=== PATIENT | female | born 1965 | race Caucasian/White ===

== ENCOUNTER 2020-01-04 23:56 | Inpatient (IN) | payer SELFPAY ==
[~2020-01-04] VITALS: Ht 170.2 cm; Wt 67.9 kg
[2020-01-05] VITALS (7 sets, daily range): BP systolic 126–167; BP diastolic 65–124
[2020-01-05] MEDS ORDERED: NITROGLYCERIN 1GM/1 INCH PACKET TD ONE (00:25)
[2020-01-05] MEDS ORDERED: ASPIRIN 325 MG TABLET ONE (00:25)
[2020-01-05 00:33] LABS: BASOPHILS % (AUTO) 1.2 % (0.0-5.0); EOSINOPHILS % (AUTO) 1.9 % (0.0-8.0); HEMATOCRIT 37.7 % (36-48); LYMPHOCYTES % (AUTO) 49.2 % (21.0-51.0); MEAN CORPUSCULAR HEMOGLOBIN 34.3 pg (27.0-33.0); MEAN CORPUSCULAR HGB CONC 36.3 g/dL (32.0-36.0); MEAN CORPUSCULAR VOLUME 94.3 fL (79-99); MONOCYTES % (AUTO) 6.8 % (3.0-13.0); NEUTROPHILS % (AUTO) 40.7 % (40.0-77.0); PLATELET COUNT (AUTO) 162 K/uL (130-400); RED CELL DISTRIBUTION WIDTH 14.6 % (11.0-15.5); WHITE BLOOD COUNT (AUTO) 4.8 K/uL (4.8-10.8)
[2020-01-05 00:35] LABS: CREATININE 0.7 mg/dL (0.5-1.5); POTASSIUM 3.6 mmol/L (3.5-5.1)
[2020-01-05] MEDS ORDERED: ACETAMINOPHEN 325 MG TAB PO PRN (02:30)
[2020-01-05] MEDS ORDERED: ONDANSETRON HCL 4 MG/2 ML VIAL IV PRN (02:30)
[2020-01-05] MEDS ORDERED: MORPHINE SULFATE 2 MG/ML 1ML SYG IVP PRN (02:45)
[2020-01-05] MEDS ORDERED: CHLORDIAZEPOXIDE HCL 25 MG CAP PO PRN ×2 (02:45→17:30)
[2020-01-05] MEDS ORDERED: LORAZEPAM 2 MG/ML 1 ML VIAL IVP PRN (02:45)
[2020-01-05] MEDS: NITROGLYCERIN 1GM/1 INCH PACKET TD SCH ×3 (02:45→18:45)
[2020-01-05] MEDS: LACTATED RINGERS 1000ML 1,000 ML IV SCH ×2 (02:45→11:25)
[2020-01-05] MEDS ORDERED: HYDRALAZINE HCL 20 MG/ML VIAL IV PRN (03:00)
[2020-01-05] MEDS ORDERED: ACETAMINOPHEN 325 MG TAB ONE (03:15)
[2020-01-05] MEDS ORDERED: LACTATED RINGERS 1000ML 1,000 ML IV ONE (03:59)
[2020-01-05 05:46] LABS: BASOPHILS % (AUTO) 1.2 % (0.0-5.0); EOSINOPHILS % (AUTO) 1.4 % (0.0-8.0); HEMATOCRIT 35.8 % (36-48); LYMPHOCYTES % (AUTO) 42.5 % (21.0-51.0); MEAN CORPUSCULAR HEMOGLOBIN 33.4 pg (27.0-33.0); MEAN CORPUSCULAR HGB CONC 35.5 g/dL (32.0-36.0); MEAN CORPUSCULAR VOLUME 94.2 fL (79-99); MONOCYTES % (AUTO) 5.1 % (3.0-13.0); NEUTROPHILS % (AUTO) 49.4 % (40.0-77.0); PLATELET COUNT (AUTO) 144 K/uL (130-400); RED CELL DISTRIBUTION WIDTH 14.6 % (11.0-15.5); WHITE BLOOD COUNT (AUTO) 4.9 K/uL (4.8-10.8)
[2020-01-05 05:56] LABS: HEMOGLOBIN A1C 5.5 % (4.0-6.0)
[2020-01-05 06:08] LABS: ALANINE AMINOTRANSFERASE 56 U/L (12-78); ASPARTATE AMINOTRANSFERASE 148 U/L (10-37); BILIRUBIN,DIRECT 0.2 mg/dL (0.0-0.3); BILIRUBIN,TOTAL 0.6 mg/dL (0.2-1.0); CARBON DIOXIDE 26 mmol/L (21-32); CHLORIDE 96 mmol/L (101-111); CHOLESTEROL 194 mg/dL (<200); CREATINE KINASE, TOTAL 63 U/L (21-232); CREATININE 0.7 mg/dL (0.5-1.5); GLOMERULAR FILTR. RATE CALC 93 mL/min (>60); GLUCOSE,RANDOM 94 mg/dL (70-105); HDL CHOLESTEROL 128 mg/dL (35-85); LDL DIRECT 39 mg/dL (0-99); MYOGLOBIN 18 ng/mL (10-92); POTASSIUM 3.6 mmol/L (3.5-5.1); SODIUM SERUM 135 mmol/L (136-145); THYROID STIMULATING HORMONE 1.53 uIU/mL (0.36-3.74); TOTAL PROTEIN, SERUM 6.8 g/dL (6.0-8.3); TRIGLYCERIDES 226 mg/dL (30-200); TROPONIN I < 0.04 ng/mL (0.00-0.06); UREA NITROGEN, BLOOD 6 mg/dL (7-18)
[2020-01-05] MEDS: ACETAMINOPHEN 325 MG TAB PO PRN ×2 (07:31→20:26)
[2020-01-05] MEDS ORDERED: HYDR12.54 PO (08:15)
[2020-01-05] MEDS ORDERED: AMLO10TA7 PO (08:15)
[2020-01-05] MEDS ORDERED: LOSA100T58 PO (08:15)
[2020-01-05] MEDS ORDERED: LABETALOL HCL 5 MG/ML 20ML VIAL IV SCH (09:00)
[2020-01-05] MEDS: M.V.I. IV [ADULT] 10 ML, FOLIC ACID 1 MG, THIAMINE HCL 100 MG in SODIUM CHLORIDE 0.9% 1... IV SCH (09:00)
[2020-01-05] MEDS ORDERED: LORAZEPAM 2 MG/ML 1 ML VIAL IVP SCH (09:00)
[2020-01-05] MEDS ORDERED: CHLORDIAZEPOXIDE HCL 25 MG CAP PO SCH (09:00)
[2020-01-05] MEDS ORDERED: LABETALOL HCL 5 MG/ML 20ML VIAL IV ONE (09:07)
[2020-01-05] MEDS ORDERED: SODIUM CHLORIDE 0.9% 500ML 500 ML IV ONE (09:08)
[2020-01-05] MEDS: ASPIRIN 81 MG EC TAB PO SCH (09:20)
[2020-01-05] MEDS: FAMOTIDINE/PF 20 MG/2 ML VIAL IV SCH ×2 (09:20→19:48)
[2020-01-05] MEDS ORDERED: LABETALOL 20 MG/4 ML DISP.SYRIN IV PRN ×3 (09:30→21:00)
[2020-01-05] MEDS: MAGNESIUM 2GM PREMIX 50ML 50 ML IV SCH ×2 (09:32→14:53)
--- NOTE | 2020-01-05 11:25 | NUR ---
DCP: HOME Sw spoke to pt via phone. Pt lives in [facility] and works with a traveling [employer]. Pt staying here in motor home after [employer] was shut down due to Conoravirus. Pt states she and NEAL Dsouza [phone] split up and they are currently not together. Pt is independent, no DME or HH. Pt has PCP is [facility] and gets her BP meds at [facility]. Pt has good support system with co workers. Pt denies problem with alcohol. States she been under a lot of stress related to not working, multiple family deaths in recent months and break up. "I just did not handle it well". Pt denies need for referral or intervention and refused resources offered. Addendum: 01/05/20 at 1130 by SINA NGUYEN Amended: Links added.
[2020-01-05] MEDS ORDERED: PHARMACY COMMUNICATION MISC SCH (12:45)
[2020-01-05] MEDS ORDERED: COMPOUND PO MISCELLANEOUS 1 EACH MISC MISC PRN (13:00)
[2020-01-05] MEDS ORDERED: LOSARTAN 50 MG TABLET PO SCH (13:55)
[2020-01-05] MEDS: VANCOMYCIN 250MG/5ML ORAL SOLUTION 40ML PO SCH ×4 (14:49→19:48)
[2020-01-05 15:21] LABS: AMPHET/METH SCREEN,URINE NEGATIVE (NEGATIVE); BARBITURATE SCREEN, URINE NEGATIVE (NEGATIVE); BENZODIAZEPINES SCREEN,URINE NEGATIVE (NEGATIVE); CANNABINOID SCREEN,URINE NEGATIVE (NEGATIVE); COCAINE SCREEN,URINE NEGATIVE (NEGATIVE); OPIATE SCREEN,URINE NEGATIVE (NEGATIVE); PHENCYCLIDINE SCREEN,URINE NEGATIVE (NEGATIVE)
[2020-01-05] MEDS: METOPROLOL TARTRATE 25 MG TAB PO SCH (20:27)
[2020-01-05] MEDS: TRAZODONE HCL 50 MG TAB PO SCH (20:27)
[2020-01-06] MEDS: VANCOMYCIN 250MG/5ML ORAL SOLUTION 40ML PO SCH ×4 (00:19→05:51)
[2020-01-06] MEDS: NITROGLYCERIN 1GM/1 INCH PACKET TD SCH (00:20)
[2020-01-06 03:39] VITALS: BP 164/95
[2020-01-06] MEDS: METOPROLOL TARTRATE 25 MG TAB PO SCH (03:46)
[2020-01-06 03:55] LABS: HEMATOCRIT 35.9 % (36-48); MEAN CORPUSCULAR HEMOGLOBIN 34.4 pg (27.0-33.0); MEAN CORPUSCULAR HGB CONC 35.7 g/dL (32.0-36.0); MEAN CORPUSCULAR VOLUME 96.5 fL (79-99); PLATELET COUNT (AUTO) 143 K/uL (130-400); RED BLOOD CELL COUNT(AUTO) 3.72 MIL/uL (4.00-5.50); RED CELL DISTRIBUTION WIDTH 14.9 % (11.0-15.5); WHITE BLOOD COUNT (AUTO) 6.3 K/uL (4.8-10.8)
[2020-01-06 04:22] LABS: ALBUMIN 3.9 g/dL (3.5-5.0); BILIRUBIN,TOTAL 1.1 mg/dL (0.2-1.0); CREATININE 0.7 mg/dL (0.5-1.5); MAGNESIUM 2.1 mg/dL (1.80-2.40); POTASSIUM 3.6 mmol/L (3.5-5.1); TOTAL PROTEIN, SERUM 6.9 g/dL (6.0-8.3)
[2020-01-06 04:51] LABS: BAND NEUTROPHILS % (MANUAL) 3 % (0-2); BASOPHILS % (MANUAL) 2 % (0-2); EOSINOPHILS % (MANUAL) 1 % (1-6); LYMPHOCYTES % (MANUAL) 16 % (22-44); MAN.DIFF COMMENT-IMPRESSION MANUAL DIFFERENTIAL; MONOCYTES % (MANUAL) 6 % (2-9); SEGMENTED NEUTROPHILS % 72 % (40-70)
[2020-01-06 04:52] LABS: PLATELET MORPHOLOGY COMMENT ADEQUATE
[2020-01-06 07:29] VITALS: BP 167/116
--- NOTE | 2020-01-06 08:00 | NUR ---
NOTE AAOX3. DNEIES PAIN OR DISCOMFORT AT THIS TIME. BBS CLEAR NO COUGH OR PHLEGM. SHE REMAINS IN ISOLATION FOR C-DIFF. SHE IS ON VANCO PO. CONTINUES WITH LOOSE STOOLS BUT LESS FREQUENT. SHE IS ON CIWA PROTOCOL FOR SHE CAME IN WITH ALCOHOL LEVEL >200 AND ADMITS TO DRINK ALCOHOL FREQUENTLY. CIWA SCORE 0.
[2020-01-06] MEDS: ASPIRIN 81 MG EC TAB PO SCH (08:59)
[2020-01-06] MEDS ORDERED: LOSARTAN 50 MG TABLET PO SCH ×2 (09:00→12:15)
[2020-01-06] MEDS: PAROXETINE HCL 20 MG TABLET PO SCH (09:00)
[2020-01-06] MEDS: FAMOTIDINE/PF 20 MG/2 ML VIAL IV SCH ×2 (09:00→20:03)
[2020-01-06] MEDS ORDERED: AMLODIPINE BESYLATE 5 MG TAB ONE (09:06)
[2020-01-06] MEDS: AMLODIPINE BESYLATE 5 MG TAB PO SCH (09:45)
[2020-01-06] MEDS: M.V.I. IV [ADULT] 10 ML, FOLIC ACID 1 MG, THIAMINE HCL 100 MG in SODIUM CHLORIDE 0.9% 1... IV SCH (10:42)
[2020-01-06 11:12] VITALS: BP 171/100
[2020-01-06] MEDS: SODIUM CHLORIDE 0.9% PO SCH ×4 (13:44→18:34)
[2020-01-06] MEDS: VANCOMYCIN 2 GM PO SCH ×4 (13:44→18:34)
[2020-01-06] MEDS ORDERED: METOPROLOL TARTRATE 25 MG TAB PO SCH (14:00)
[2020-01-06 16:20] VITALS: BP 162/107
--- NOTE | 2020-01-06 18:00 | NUR ---
note PATIENT REMAINED STABLE. NO DISTRESS OR WITHDRAWALS. SHE IS STILL ISOLATION CONTACT PLUS FOR C-DIFF. TELEMETRY HAS BEEN CALLING SHE HAS BEEN DROPPING HEART RATE IN THE 40'S WITH JUNCTIONAL RHYTHM. SPOKE TO DR CUELLAR WHEN HE ROUNDED AND HE GAVE ORDERS TO LOWER METOPROLOL DOSAGE. CHANGES HAVE BEEN MADE.
[2020-01-06] MEDS: TRAZODONE HCL 50 MG TAB PO SCH (20:03)
[2020-01-06 20:11] VITALS: BP 152/86
--- NOTE | 2020-01-06 21:00 | NUR ---
PREP MULTIPE LOOSE WATERY YELLOW STOOLS, CONSENT SIGNED FOR CT GUIDED LIVER BIOPSY , PATIENT VERBALIZES UNDERSTANDING VIA TEACH BACK, CALL BHATTI AT REACH
[2020-01-07] MEDS: SODIUM CHLORIDE 0.9% PO SCH ×8 (00:07→18:46)
[2020-01-07] MEDS: VANCOMYCIN 2 GM PO SCH ×8 (00:07→18:46)
[2020-01-07 00:18] VITALS: BP 156/88
[2020-01-07 04:48] VITALS: BP 151/87
[2020-01-07 06:03] LABS: CREATININE 0.6 mg/dL (0.5-1.5); MAGNESIUM 1.5 mg/dL (1.80-2.40); POTASSIUM 3.6 mmol/L (3.5-5.1)
[2020-01-07] MEDS: MAGNESIUM 2GM PREMIX 50ML 50 ML IV SCH (06:29)
[2020-01-07] MEDS: ASPIRIN 81 MG EC TAB PO SCH (08:32)
[2020-01-07] MEDS: FAMOTIDINE/PF 20 MG/2 ML VIAL IV SCH ×2 (08:32→19:32)
[2020-01-07] MEDS: AMLODIPINE BESYLATE 5 MG TAB PO SCH ×2 (08:33→19:32)
[2020-01-07] MEDS: METOPROLOL TARTRATE 25 MG TAB PO SCH ×2 (08:33→19:32)
[2020-01-07] MEDS: PAROXETINE HCL 20 MG TABLET PO SCH (08:33)
[2020-01-07] MEDS ORDERED: LOSARTAN 50 MG TABLET PO SCH (09:00)
[2020-01-07 10:12] VITALS: BP 168/107
[2020-01-07] MEDS: M.V.I. IV [ADULT] 10 ML, FOLIC ACID 1 MG, THIAMINE HCL 100 MG in SODIUM CHLORIDE 0.9% 1... IV SCH (10:35)
[2020-01-07 11:51] VITALS: BP 157/101
[2020-01-07 18:30] VITALS: BP 148/83
[2020-01-07] MEDS ORDERED: AMLODIPINE BESYLATE 5 MG TAB ONE (19:24)
[2020-01-07] MEDS: TRAZODONE HCL 50 MG TAB PO SCH (19:32)
[2020-01-07 20:00] VITALS: BP 141/85
[2020-01-08] VITALS: BP 155/71
[2020-01-08] MEDS: VANCOMYCIN 2 GM PO SCH ×10 (00:24→23:35)
[2020-01-08] MEDS: SODIUM CHLORIDE 0.9% PO SCH ×10 (00:24→23:35)
[2020-01-08 03:40] VITALS: BP 151/80
[2020-01-08] MEDS: MAGNESIUM 2GM PREMIX 50ML 50 ML IV SCH ×2 (06:25→09:08)
[2020-01-08 06:39] LABS: CREATININE 0.6 mg/dL (0.5-1.5); MAGNESIUM 1.4 mg/dL (1.80-2.40); POTASSIUM 3.2 mmol/L (3.5-5.1)
[2020-01-08 08:00] VITALS: BP 160/79
[2020-01-08] MEDS ORDERED: POTASSIUM CHLORIDE 20 MEQ ERTAB PO SCH (08:00)
[2020-01-08] MEDS: METOPROLOL TARTRATE 25 MG TAB PO SCH ×2 (09:05→21:31)
[2020-01-08] MEDS: AMLODIPINE BESYLATE 5 MG TAB PO SCH ×2 (09:06→21:31)
[2020-01-08] MEDS: PAROXETINE HCL 20 MG TABLET PO SCH (09:06)
[2020-01-08] MEDS: FAMOTIDINE/PF 20 MG/2 ML VIAL IV SCH ×2 (09:06→21:31)
[2020-01-08] MEDS: HYDROCHLOROTHIAZIDE 25 MG TABLET PO SCH (09:06)
[2020-01-08] MEDS: ASPIRIN 81 MG EC TAB PO SCH (09:06)
[2020-01-08 11:00] VITALS: BP 146/75
--- NOTE | 2020-01-08 13:15 | NUR ---
NOTIFIED DR CUELLAR ON LOPRESSOR IF NEEDING ADJUSTMENTS DUE TO HR RANGES ON DAYTIME BETWEEN 60-70WITH OCCASIONAL 50S AND DURING NIGHT LOW 40S HR . PER MD IT IS OK ,ASYMPTOMATIC HER HR WILL GO UP PATIENT BECOMES MORE ACTIVE. NOTIFIED PRIMARY MD DR HENRY WELL ON MACHINE CONTAINER WASHER INPUT
[2020-01-08 16:00] VITALS: BP 144/83
[2020-01-08 20:00] VITALS: BP 142/92
[2020-01-08] MEDS: TRAZODONE HCL 50 MG TAB PO SCH (21:30)
[2020-01-09 00:04] VITALS: BP 137/82
[2020-01-09 04:00] VITALS: BP 133/81
[2020-01-09 05:34] LABS: CREATININE 0.7 mg/dL (0.5-1.5); MAGNESIUM 1.7 mg/dL (1.80-2.40)
[2020-01-09] MEDS: VANCOMYCIN 2 GM PO SCH ×4 (06:28→12:49)
[2020-01-09] MEDS: SODIUM CHLORIDE 0.9% PO SCH ×4 (06:28→12:49)
[2020-01-09 08:00] VITALS: BP 142/85
[2020-01-09] MEDS: FAMOTIDINE/PF 20 MG/2 ML VIAL IV SCH (08:33)
[2020-01-09] MEDS: AMLODIPINE BESYLATE 5 MG TAB PO SCH (08:34)
[2020-01-09] MEDS: ASPIRIN 81 MG EC TAB PO SCH (08:34)
[2020-01-09] MEDS: METOPROLOL TARTRATE 25 MG TAB PO SCH (08:34)
[2020-01-09] MEDS: PAROXETINE HCL 20 MG TABLET PO SCH (08:34)
[2020-01-09] MEDS: HYDROCHLOROTHIAZIDE 25 MG TABLET PO SCH (08:36)
[2020-01-09] MEDS: MAGNESIUM 2GM PREMIX 50ML 50 ML IV SCH (10:31)
[2020-01-09] MEDS ORDERED: PARO-66 PO (11:43)
[2020-01-09] MEDS ORDERED: VANC125C12 PO (11:43)
[2020-01-09] MEDS ORDERED: METO25 PO (11:43)
[2020-01-09] MEDS ORDERED: MAGN400T53 PO (11:43)
[2020-01-09] MEDS ORDERED: TRAZ-253 PO (11:43)
[2020-01-09 11:47] VITALS: BP 134/64
--- NOTE | 2020-01-09 15:53 | NUR ---
PATIENT DISCHARGE PATIENT DISCHARGE, IV DISCONTINUED,CATHLON INTACT, BLEEDING CONTROLLED, PATIENT TOLERATED WITHOUT INCIDENT. DISCUSSED THE NEED TO MAKE AND GO TO FOLLOW UP APPOINTMENTS. PRESCRIPTIONS SENT TO [facility], PATIENT ADVISED. COVERED NEW MEDICATIONS, WHAT MEDICATIONS TO CONTINUE AND WHAT MEDICATIONS TO STOP TAKING. PATIENT INDICATED SHE UNDERSTOOD DISCHARGE INSTRUCTIONS AND HAD NO ADDITIONAL QUESTIONS.
== END 2020-01-09 16:14 | disposition home or self-care (01) | DRG 372 ==
LOC: EDH 23:56 → EDHIP 23:57 → 3AH 01-05 03:55
PROVIDERS: ADMIT Internal Medicine; ATTEND Internal Medicine
DX: A04.72 Enterocolitis due to Clostridium difficile, not specified as recurrent (principal); E87.1 Hypo-osmolality and hyponatremia; F10.239 Alcohol dependence with withdrawal, unspecified; I25.110 Atherosclerotic heart disease of native coronary artery with unstable angina pectoris; I47.1 Supraventricular tachycardia; I10 Essential (primary) hypertension; F10.229 Alcohol dependence with intoxication, unspecified; E83.42 Hypomagnesemia; F43.22 Adjustment disorder with anxiety; F39 Unspecified mood [affective] disorder; E87.6 Hypokalemia; I16.0 Hypertensive urgency; I44.7 Left bundle-branch block, unspecified; J45.909 Unspecified asthma, uncomplicated; Y90.8 Blood alcohol level of 240 mg/100 ml or more; Z98.1 Arthrodesis status; Z88.2 Allergy status to sulfonamides; Z91.19 Patient's noncompliance with other medical treatment and regimen
CPT/HCPCS: 36415; 71045; 71046; 80048; 80053; 80061; 80076; 80305; 82550; 83036; 83630; 83735; 83874; 84443; 84484; 85025; 87324; 87507; 93005; 93306; 93356; 99291; G0378; G0480; J0360; J2060; J2405; J3370; J3411; J3475; J3490; J7030; J7040; J7120